=== PATIENT | female | born 1985 | race Caucasian/White ===

== ENCOUNTER 2022-10-30 16:12 | Emergency (ER) | payer SELFPAY ==
[~2022-10-30] VITALS: Ht 162.6 cm; Wt 79.0 kg
[~2022-10-30 16:12] MED LIST: B COMPLE3 PO; CEPHALEXIN500 MG PO; PRENATA6 PO; PROMETHAZINE25 M1 RE; ZOFRAN4 MG/TAB PO
[2022-10-30 16:23] VITALS: BP 160/98; BP 168/123
[2022-10-30 16:30] VITALS: BP 147/109
[2022-10-30 17:00] VITALS: BP 158/127
[2022-10-30 17:24] VITALS: BP 126/90
[2022-10-30 17:30] VITALS: BP 130/91
[2022-10-30] MEDS ORDERED: KEFLEX500 MG PO (17:39)
[2022-10-30 17:50] VITALS: BP 130/91
== END 2022-10-30 17:58 | disposition home or self-care (01) | DRG 605 ==
LOC: ED 16:12
PROC: 0HQGXZZ Repair Left Hand Skin, External Approach (ICD-10-PCS; principal; 2022-10-30)
DX: S61.213A Laceration without foreign body of left middle finger without damage to nail, initial encounter (principal); W27.2XXA Contact with scissors, initial encounter; Y93.89 Activity, other specified; Y92.009 Unspecified place in unspecified non-institutional (private) residence as the place of occurrence of the external cause

== ENCOUNTER 2023-01-14 09:27 | Emergency (ER) | payer SELFPAY ==
[2023-01-14] VITALS (8 sets, daily range): BP systolic 134–169; BP diastolic 96–111
[~2023-01-14] VITALS: Ht 162.6 cm; Wt 68.0 kg
[~2023-01-14 09:27] MED LIST changes: +KEFLEX500 MG PO
== END 2023-01-14 11:04 | disposition home or self-care (01) | DRG 563 ==
LOC: ED 09:27
DX: S93.401A Sprain of unspecified ligament of right ankle, initial encounter (principal); S80.811A Abrasion, right lower leg, initial encounter; X50.0XXA Overexertion from strenuous movement or load, initial encounter; Y93.K1 Activity, walking an animal; Y92.009 Unspecified place in unspecified non-institutional (private) residence as the place of occurrence of the external cause